=== PATIENT | male | born 1965 | race Two or more races ===

== ENCOUNTER 2024-07-22 08:05 | Day surgery (SDC) | payer BC, MEDICARE ==
[2024-07-21 08:58] VITALS: BMI 41.0
[~2024-07-22 08:05] MED LIST: ALPRAZolam 0.25 MG TAB PO PRN; ALPRAZolam 0.5 MG TAB PO PRN; ASPIRIN 325 MG TAB PO ONE; ATORVASTATIN 80 MG TAB PO ONE; NITROGLYCERIN SL TABS 0.4 MG TAB SUBLINGUAL PRN
[2024-07-22] MEDS: SODIUM CHLORIDE 0.9% 1,000 ML in EMPTY BAG 1 BAG IV SCH (08:43)
[2024-07-22 08:44] VITALS: RESP 18; TEMP 99
[2024-07-22] MEDS: IV FLUID CONTINUATION 1,000 ML IV ONE ×2 (08:44→13:00)
[2024-07-22 08:49] LABS: Anisocytosis Slight; Basophils # (A) 0.1 k/uL (0-0.2); Basophils % (A) 1 %; Eosinophils # (A) 0.2 k/uL (0-0.7); Eosinophils % (A) 3 %; HCT 36.8 % (39.0-53.0); HGB 11.8 gm/dL (13.0-17.5); Hypochromasia Moderate; Lymphocytes # (A) 1.4 k/uL (1.0-4.8); Lymphocytes % (A) 19 %; MCH 27.2 pg (25.0-35.0); MCV 84.9 fL (80.0-100.0); Mean Platelet Volume 9.6; Monocytes # (A) 0.5 k/uL (0-1.0); Monocytes % (A) 7 %; Neutrophils # (A) 5.1 k/uL (1.3-7.7); Neutrophils % (A) 70 %; Platelet Count 175 k/uL (150-450); RBC 4.34 m/uL (4.30-5.90); RDW 16.7 % (11.5-15.5); WBC 7.3 k/uL (3.8-10.6)
[2024-07-22 09:21] LABS: African American GFR (CKD) >90 (>60 ml/min/1.73 sqM); Anion Gap 8 mmol/L; Blood Urea Nitrogen 19 mg/dL (9-20); Calcium 9.2 mg/dL (8.4-10.2); Carbon Dioxide 24 mmol/L (22-30); Chloride 107 mmol/L (98-107); Glucose 136 mg/dL (74-99); Non-African American GFR(CKD) >90 (>60 ml/min/1.73 sqM); Sodium 139 mmol/L (137-145)
[2024-07-22] MEDS: HEPARIN SODIUM,PORCINE (1 ML) 2,500 UNIT in SODIUM CHLORIDE 0.9% 250 ML IRRIGATION PRN (09:26)
[2024-07-22] MEDS: HEPARIN SODIUM,PORCINE 10,000 UNIT in SODIUM CHLORIDE 0.9% 1,000 ML IRRIGATION PRN (09:26)
[2024-07-22] MEDS: VERAPAMIL SYRINGE (5 MG/10 ML) INTRAARTER ONE (09:39)
[2024-07-22] MEDS: LIDOCAINE 1% INJ 10MG/ML (20 ML MDV) SQ ONE (09:39)
[2024-07-22] MEDS: MIDAZOLAM 2 MG/2 ML VIAL IVP ONE (09:39)
[2024-07-22] MEDS: fentaNYL (PF) 50 MCG/1 ML VIAL IVP ONE (09:39)
[2024-07-22] MEDS: NITROGLYCERIN OINT 1 INCH/GM PACKET TOPICAL ONE (09:40)
[2024-07-22] MEDS: METOPROLOL TARTRATE 5 MG/5 ML VIAL IVP ONE (09:40)
[2024-07-22] MEDS: HEPARIN SODIUM 1,000 UN/ML (10ML VL) IVP ONE (09:45)
[2024-07-22] MEDS: IOPAMIDOL-370 100ML BTL INJ ONE (09:56)
[2024-07-22] MEDS ORDERED: RX INFO: IV CONTRAST WAS GIVEN 1 EACH MISC MISCELLANE PRN (10:12)
[2024-07-22] MEDS ORDERED: amLODIPine 10 MG TAB PO SCH (10:15)
[2024-07-22] MEDS ORDERED: ISOSORBIDE MONONITRATE ER 30 MG TAB.ER.24H PO SCH (10:15)
--- NOTE | 2024-07-22 10:49 | CC ---
CARDIAC CATHETERIZATION REPORT INDICATION: Shortness of breath with abnormal stress test showing ischemia in LAD distribution. PROCEDURE NOTE: After obtaining informed consent, left heart catheterization and coronary angiogram were performed via the right radial artery using standard Dana catheters. The patient tolerated the procedure well without any obvious immediate complications. The patient had uncontrolled hypertension prior to starting the catheterization and also was having muscle cramps and pain, and his blood pressure was treated with IV Lopressor and nitroglycerin paste. A TR band will be used for hemostasis he received moderate conscious sedation. Total sedation time was 20 minutes. Right radial artery access was obtained using Seldinger technique, a 6-Italian sheath was placed. Catheters and wires were floated into the ascending aorta under fluoroscopic guidance. The patient received verapamil and heparin per protocol. FINDINGS: 1. Right coronary artery is a large dominant vessel that shows a focal 70% to 80% stenosis at the ostial portion of the PDA. 2. Main coronary artery is a normal-sized vessel and is free of stenosis. Divides into left anterior descending coronary artery and circumflex coronary artery. 3. Circumflex coronary artery and its branches are free of significant stenosis. 4. LAD and its branches show mild nonobstructive disease. CONCLUSIONS: 70% to 80% stenosis involving the ostial portion of the PDA. PLAN: Patient's stress test abnormality is not in the region of the stenosis noted in the PDA, so the plan at this stage is to manage him medically. Add beta-blockers, aspirin, nitrates to his medical regimen. Check his lipids and start him on lipid-lowering agents and see how his symptoms evolve. If he has symptoms of exertional angina or shortness of breath, consider percutaneous revascularization of the PDA. MMODL / IJN: [id number] /
[2024-07-22] MEDS: DILTIAZEM CD 240 MG CAP.ER.24H PO SCH (12:27)
[2024-07-22 15:16] VITALS: BP 156/85; PULSE 65
[2024-07-22 15:24] LABS: Chol/HDL Ratio 3.35 Ratio; LDL Cholesterol,Calculated 114.9 mg/dL (0.0-131.0)
== END 2024-07-22 15:16 | disposition home or self-care (01) ==
LOC: CATHCVL 08:05
PROVIDERS: ATTEND Internal Medicine Cardiovascular Disease
DX: I25.10 Atherosclerotic heart disease of native coronary artery without angina pectoris (principal); I10 Essential (primary) hypertension; Z88.8 Allergy status to other drugs, medicaments and biological substances; Z79.899 Other long term (current) drug therapy; Z79.82 Long term (current) use of aspirin
CPT/HCPCS: 93458; 80061; 80048; 85025; 99152; J2250; J1644 ×3; J2003; Q9967; J3010